=== PATIENT | male | born 2000 | race Two or more races ===

== ENCOUNTER 2019-11-24 19:24 | Emergency (ER) | payer OTHER ==
[~2019-11-24] VITALS: Ht 167.6 cm; Wt 62.8 kg
[2019-11-24] MEDS ORDERED: ONDANSETRON 4 MG TABLET PO ONE (19:30)
[2019-11-24] MEDS ORDERED: PLEASE ENTER HEIGHT AND WEIGHT MC SCH (20:00)
[2019-11-24] MEDS ORDERED: PLEASE ENTER ALLERGIES MC SCH (20:00)
[2019-11-24] MEDS ORDERED: SODIUM CHLORIDE FLUSH 10ML SYR IVF ONE ×2 (20:30→22:00)
[2019-11-24 20:49] LABS: BASOPHILS # (AUTO) 0.01 x10^3/uL (0-0.1); BASOPHILS % (AUTO) 0 % (0-1); EOSINOPHILS % (AUTO) 0 % (1-7); LYMPHOCYTES # (AUTO) 0.79 x10^3/uL (1-3.4); LYMPHOCYTES % (AUTO) 5 % (22-44); MD NO; MEAN CORPUSCULAR HEMOGLOBIN 31.1 pg (27.5-34.5); MEAN CORPUSCULAR HGB CONC 33.3 g/dL (33.2-36.2); MEAN CORPUSCULAR VOLUME 93.4 fL (81-97); MEAN PLATELET VOLUME 9.4 fL (7.4-10.4); MONOCYTES # (AUTO) 0.78 x10^3/uL (0.2-0.8); MONOCYTES % (AUTO) 5 % (2-9); NEUTROPHILS # (AUTO) 13.18 x10^3/uL (1.8-6.8); NEUTROPHILS % (AUTO) 89 % (42-75); PLATELET COUNT 260 x10^3/uL (130-400); RED BLOOD COUNT 4.73 x10^6/uL (4.38-5.82)
--- NOTE | 2019-11-24 20:49 | NUR ---
NO ANSWER WHEN CALLED FOR ROOM
[2019-11-24 20:55] LABS: ALANINE AMINOTRANSFERASE 34 U/L (12-78); ALBUMIN 4.8 g/dL (3.4-5.0); CALCIUM 9.9 mg/dL (8.5-10.1); CREATININE 1.36 mg/dL (0.7-1.3)
[2019-11-24] MEDS ORDERED: ONDANSETRON ODT 4 MG PO ONE (21:00)
[2019-11-24 21:05] LABS: ANION GAP 13 mmol/L (5-15); CHLORIDE 104 mmol/L (98-107)
[2019-11-24 21:10] LABS: ALKALINE PHOSPHATASE 96 U/L (45-117); BILIRUBIN,TOTAL 0.5 mg/dL (0.2-1.0)
[2019-11-24 21:11] LABS: TOTAL PROTEIN 8.9 g/dL (6.4-8.2)
--- NOTE | 2019-11-24 21:16 | NUR ---
PT AMBULATE WITH STEADY GATE TO ROOM AT THIS TIME
[2019-11-24] MEDS ORDERED: ONDANSETRON ODT 4 MG ONE (21:25)
--- NOTE | 2019-11-24 21:33 | NUR ---
PT C/O N/V AFTER BINGE DRINKING LAST NIGHT. TASK RN STARTED IV AND IVF PER MD VERBAL ORDER. CONNECTED TO MONITORING. CALL LIGHT IN REACH.
[2019-11-24 21:34] VITALS: BP 121/52
[2019-11-24] MEDS ORDERED: SODIUM CHLORIDE 0.9% 1,000ML IVBOLUS ONE (22:00)
[2019-11-24] MEDS ORDERED: FAMOTIDINE 20 MG/2 ML IV ONE (22:00)
[2019-11-24] MEDS ORDERED: ONDANSETRON 2MG/ML, 2ML IVPush ONE (22:00)
[2019-11-24] MEDS ORDERED: FAMOTIDINE 20 MG/2 ML ONE (22:09)
--- NOTE | 2019-11-24 22:15 | NUR ---
IVF COMPLETE. ALL RESULTS ARE BACK AT THIS TIME. CHART UP FOR RECHECK.
== END 2019-11-24 22:50 | disposition home or self-care (01) ==
LOC: ED 22:45
DX: K29.20 Alcoholic gastritis without bleeding (principal); F10.10 Alcohol abuse, uncomplicated; R11.2 Nausea with vomiting, unspecified; Y90.0 Blood alcohol level of less than 20 mg/100 ml
CPT/HCPCS: 36415; 80053; 83690; 85025; 96374; 99283; J3490; J7030; Q0162